=== PATIENT | male | born 2000 | race Two or more races ===

== ENCOUNTER 2020-01-11 14:15 | Emergency (ER) | payer MEDICAID, OTHER ==
[2020-01-11] MEDS ORDERED: Bacitracin Oint 30 GM Tube TOP STA (14:36)
[2020-01-11] MEDS ORDERED: Lidocaine 2% 5 ML SDV INJECT ONE (14:36)
--- NOTE | 2020-01-11 14:37 | EDM.PDOC ---
ED HPI GENERAL MEDICAL PROBLEM - General Chief Complaint: Laceration Stated Complaint: Cut my hand Time Seen by Provider: 01/11/20 14:37 Source of Information: Reports: Patient History Limitations: Reports: No Limitations - History of Present Illness Onset: Today Duration: Minutes:, Constant Location: Reports: Upper Extremity, Right Quality: Reports: Burning, Pressure Severity: Mild Improves with: Reports: None Worsens with: Reports: Movement Context: Reports: Trauma Associated Symptoms: Reports: No Other Symptoms Right Hand Pain Score (Numeric/FACES): 6 - Related Data Allergies Allergy/AdvReac Type Severity Reaction Status Date / Time acetaminophen Allergy Bleeding Verified 01/11/20 14:16 Home Meds: Home Meds . [No Known Home Meds] 08/14/19 [History] Past Medical History HEENT History: Reports: None Cardiovascular History: Reports: None Respiratory History: Reports: Asthma, Bronchitis, Recurrent, Other (See Below) Other Respiratory History: Childhood asthma. Gastrointestinal History: Reports: None Musculoskeletal History: Reports: Other (See Below) (Right thumb injury requiring extensive suturing) Neurological History: Reports: Headaches, Chronic, Migraines - Past Surgical History HEENT Surgical History: Reports: Oral Surgery, Other (See Below) Other HEENT Surgeries/Procedures: [place] teeth extraction 4 at 16 years of age GI Surgical History: Reports: None Male Surgical History: Reports: None Social & Family History - Family History Family Medical History: Noncontributory - Tobacco Use Smoking Status *Q: Current Every Day Smoker Years of Tobacco use: 10 Packs/Tins Daily: 1 - Caffeine Use Caffeine Use: Reports: None - Alcohol Use Days Per Week of Alcohol Use: 2 Number of Drinks Per Day: 5 Total Drinks Per Week: 10 - Recreational Drug Use Recreational Drug Use: No - Living Situation & Occupation Living situation: Reports: (2019, 1 child) Occupation: Employed (About to be employed by [email or web address]) ED ROS GENERAL - Review of Systems Review Of Systems: Comprehensive ROS is negative, except as noted in HPI. ED EXAM, SKIN/RASH Exam: See Below Text/Narrative:: Alert oriented in no distress. HEENT is benign discharge nor deformity. Thorax is clear with no labored respiratory effort. Cardiac is regular radial pulse correlates. Focused examination to the right upper extremity. No other injury noted nor complained of. Superficial lacerations to the palm base of the thumb, and wrist region from glass shards. There is a 3 mm laceration to the dorsal surface the base of the thumb. There are scattered superficial lesions noted to the wrist area and palm with predominant lesion at the base of the second MCP that is 6 mm in total length with a 3 mm flap. Nursing service has cleansed and found/removed glass fragments superficially as well as in 1 of the smaller wounds that was easily removed with rinsing and washing with 4 x 4. Tetanus status is up-to-date. ED SKIN PROCEDURES - Laceration/Wound Repair Right Hand Appearance: Superficial Distal NVT: Neuro & Vascular Intact, No Tendon Injury Anesthetic Type: Local Local Anesthesia - Lidocaine (Xylocaine): 2% Plain Local Anesthetic Volume: 2cc Skin Prep: Chlorhexidine (Hibiciens) Exploration/Debridement/Repair: Wound Explored, Explored to Base, Minimal Debridement, No Foreign Material Found Closed with: Sutures Lac/Wound length In cm: 3 Suture Size: 4-0 # of Sutures: 1 Suture Type: Nylon, Interrupted Sterile Dressing Applied: Nurse Tetanus Status Addressed: Yes (Up-to-date) Complications: No Progress/Comments: Cleansed and the 2 wounds that were sutured were explored with no foreign body found. Cleansed with Hibiclens and infiltrated with 2% lidocaine. 3 mm wound is repaired with 1 interrupted 4-0 nylon stitch with good approximation and tolerates that well no bleeding after placement. The base of the second digit distal carpal on 5 mm wound with flap is approximated with 3 interrupted 4-0 nylon sutures with good approximation. Course - Vital Signs Last Recorded V/S: Last Vital Signs Temp 36.4 C 01/11/20 14:16 Pulse 106 H 01/11/20 14:16 Resp 16 01/11/20 14:16 BP 135/62 01/11/20 14:16 Pulse Ox 96 01/11/20 14:16 - Orders/Labs/Meds Meds: Medications Discontinued Medications Generic Name Dose Route Start Last Admin Trade Name Sumit PRN Reason Stop Dose Admin Bacitracin 0.9 gm 01/11/20 14:36 Bacitracin Oint TOP 01/11/20 14:37 NOW STA Lidocaine 5 ml 01/11/20 14:36 01/11/20 15:13 Xylocaine-Mpf 2% INJECT 01/11/20 14:37 5 ml ONETIME ONE Administration Neomycin/Polymyxin/Bacitracin 1 each 01/11/20 15:13 Triple Antibiotic Oint TOP 01/11/20 15:14 ONETIME ONE Departure - Departure Time of Disposition: 15:15 Disposition: Home, Self-Care 01 Condition: Good Clinical Impression: Laceration of hand without complication, including fingers - Discharge Information *PRESCRIPTION DRUG MONITORING PROGRAM REVIEWED*: Not Applicable *COPY OF PRESCRIPTION DRUG MONITORING REPORT IN PATIENT ELSY: Not Applicable Instructions: Mechanical Wound Debridement, Care After, Laceration Care, Adult, [id number], Sutures, [place], or Adhesive Wound Closure Forms: ED Department Discharge Additional Instructions: Sutures placed today will need to be removed in 10 days or 20 January at your convenience for scheduling. You may contact the clinic here at the hospital where they will be removed as part of the service charge for placement. You may choose any other clinic that you wish but there may be a charge for removal. Keep clean and dry as possible. You can bathe as normal but no soaking of the hand until sutures are removed. Change dressing once getting soiled and at least twice daily. Consideration for a glove to protect the area until all the superficial cuts are healing as well. Call or return if concerns, inflammation, discharge, or increasing pain and swelling Sepsis Event Note (ED) - Evaluation Sepsis Screening Result: No Definite Risk - Focused Exam Vital Signs: Vital Signs Temp Pulse Resp BP Pulse Ox 01/11/20 14:16 36.4 C 106 H 16 135/62 96 - Problem List & Annotations (1) Laceration of hand without complication, including fingers SNOMED Code(s): 783288866 Code(s): S61.419A - LACERATION WITHOUT FOREIGN BODY OF UNSP HAND, INIT ENCNTR; S61.219A - LACERATION W/O FB OF UNSP FINGER W/O DAMAGE TO NAIL, INIT Status: Acute Priority: High Qualifiers: Encounter type: initial encounter Laterality: right Qualified Code(s): S61.411A - Laceration without foreign body of right hand, initial encounter - Problem List Review Problem List Initiated/Reviewed/Updated: Yes - Assessment/Plan Plan: Sutures placed today will need to be removed in 10 days or 20 January at your convenience for scheduling. You may contact the clinic here at the hospital where they will be removed as part of the service charge for placement. You may choose any other clinic that you wish but there may be a charge for removal. Keep clean and dry as possible. You can bathe as normal but no soaking of the hand until sutures are removed. Change dressing once getting soiled and at least twice daily. Consideration for a glove to protect the area until all the superficial cuts are healing as well. Call or return if concerns, inflammation, discharge, or increasing pain and swelling.
[2020-01-11] MEDS ORDERED: Bacitracin/Neomycin/Polymyxin B Oint 0.9 GM U/D Packet TOP ONE (15:13)
== END 2020-01-11 15:15 | disposition home or self-care (01) ==
LOC: KA.ED 14:15
DX: S61.411A Laceration without foreign body of right hand, initial encounter (principal); F17.210 Nicotine dependence, cigarettes, uncomplicated; Z88.6 Allergy status to analgesic agent; W25.XXXA Contact with sharp glass, initial encounter
CPT/HCPCS: 12002; 99282; 99283; J2001